=== PATIENT | female | born 1965 | race African-American/Black ===

== ENCOUNTER → 2018-08-22 | Outpatient (CLI) | payer OTHER ==
[~2018-08-22] VITALS: Ht 165.1 cm; Wt 98.9 kg
[~2018-08-22] MED LIST: AMLODIPINE BESY10 MG PO; AMOXICILLIN 50500 MG PO; CLONIDINE HCL0.3 M3 PO; GENTAMICIN 0.15 CR TOP; LASIX 80 MG TAB80 MG PO; RENVELA800 MG PO; TRANDATE 200 M200 M1 PO
--- NOTE | ~2018-08-22 | P ---
[facility] [place] [address] PROCEDURE REPORT Name: SANDYALEJA NORMANRIC LOYA Room #: [facility]#: [id number] Admission: 08/22/18 ������������������ Attend Phys: Shad Ornelas Discharge: ������������������ Date of : 61 Report #: [id number] THIS REPORT FOR: //name// CC: Shad Lerma Physician staff VEENA Garnica MD DATE OF SERVICE: 08/22/2018 PROCEDURE PERFORMED: Colonoscopy. HISTORY OF PRESENT ILLNESS: The patient is a 53-year-old female who presents today for routine screening colonoscopy. No previous history of endoscopy. She has a history of renal failure, on peritoneal dialysis and is preparing for possible renal transplant in the future. No family history of colon cancer. DESCRIPTION OF PROCEDURE: The risks and benefits of the procedure were explained to the patient, those risks including but not limited to bleeding, perforation and the risk of sedation. She understood these risks and gave informed consent. Sedation was given using propofol per anesthesia. Next, digital rectal exam was initially performed, which was normal. Next, using a standard Olympus colonoscope, the scope was placed in the patient's anus and advanced under direct vision to the cecum. The overall prep was good. The cecum and ileocecal valve were normal in appearance. Multiple diverticula were noted throughout the ascending, transverse, descending and sigmoid colon. No evidence of inflammation, otherwise normal. The rectal mucosa was normal. On retroflexion, small nonbleeding internal hemorrhoids were noted. The scope was then withdrawn and the procedure terminated. The patient tolerated the procedure well. IMPRESSION: 1. Pandiverticulosis. 2. Small internal hemorrhoids. 3. Otherwise, normal colonoscopy. RECOMMENDATIONS: 1. Okay to proceed with renal transplant from a GI standpoint. 2. Repeat colonoscopy in 10 years. Thank you for allowing me to participate in her care. ��������������������������������������������� ���������������������������������������� By: ��������������������������������������������� [id number] Shad Lerma MD /nt
[2018-08-22 08:18] LABS: HEMATOCRIT 33.8 % (37.0-47.0); HEMOGLOBIN 11.3 gm/dL (12.0-15.0); MCHC 33.4 g/dL (28.0-37.0); MCV 95.7 fL (80.0-100.0); RBC 3.54 mil/uL (4.20-5.00); RDW 14.9 % (10.5-14.5); WBC 5.4 thou/uL (4.0-11.0)
[2018-08-22 08:30] LABS: CALCIUM 9.8 mg/dL (8.5-10.1); CREATININE 4.9 mg/dL (0.6-1.0); POTASSIUM 3.6 mmol/L (3.5-5.1)
[2018-08-22 08:35] LABS: ALBUMIN 3.6 g/dL (3.4-5.0); TOTAL BILIRUBIN 0.6 mg/dL (<0.1-1.0); TOTAL PROTEIN 8.1 g/dL (6.4-8.2)
== END | disposition home or self-care (01) ==
LOC: GI 07:47
PROVIDERS: Specialist
DX: Z12.11 Encounter for screening for malignant neoplasm of colon (principal); K57.30 Diverticulosis of large intestine without perforation or abscess without bleeding; K64.8 Other hemorrhoids; D64.9 Anemia, unspecified; I12.0 Hypertensive chronic kidney disease with stage 5 chronic kidney disease or end stage renal disease; N18.6 End stage renal disease; Z98.51 Tubal ligation status; Z99.2 Dependence on renal dialysis; Z79.899 Other long term (current) drug therapy; Z98.890 Other specified postprocedural states
CPT/HCPCS: 62110; 62900